=== PATIENT | female | born 1980 | race African-American/Black ===

== ENCOUNTER 2017-10-10 12:01 | Emergency (ER) | payer BC, OTHER ==
[2017-10-10] MEDS ORDERED: DIPHENHYDRAMINE HCL 50 MG CAPSULE PO ONE (13:12)
[2017-10-10] MEDS ORDERED: PROMETHAZINE HCL 25 MG TABLET PO ONE (13:12)
--- NOTE | 2017-10-10 13:12 | ER Document Report ---
ED General - General Chief Complaint: Headache Stated Complaint: HEADACHE Time Seen by Provider: 10/10/17 12:55 Mode of Arrival: Ambulatory Information source: Patient Notes: 37-year-old female presents with complaints of migraine headache. Patient notes she has history of migraines denies any fevers or chills admits to nausea vomiting. Patient also notes that she was at an urgent care recently had blood work performed and stool samples for GI symptoms but that she never heard back from results TRAVEL OUTSIDE OF THE [place] IN LAST 30 DAYS: No - HPI Onset: Just prior to arrival Onset/Duration: Sudden Quality of pain: Achy Severity: Mild Pain Level: 1 Associated symptoms: Headache, Nausea, Vomiting Exacerbated by: Denies Relieved by: Denies Similar symptoms previously: Yes Recently seen / treated by doctor: Yes - Related Data Allergies/Adverse Reactions: No Known Allergies Allergy (Verified 10/10/17 12:08) Past Medical History - Social History Smoking Status: Never Smoker Cigarette use (# per day): No Chew tobacco use (# tins/day): No Smoking Education Provided: No Frequency of alcohol use: Occasional Drug Abuse: None Family History: Arthritis, Hypertension, Malignancy - Mother Patient has suicidal ideation: No Patient has homicidal ideation: No Neurological Medical History: Reports: Hx Migraine Renal/ Medical History: Denies: Hx Peritoneal Dialysis - Immunizations Immunizations up to date: Yes Hx Diphtheria, Pertussis, Tetanus Vaccination: Yes - given in the ER today Review of Systems - Review of Systems Notes: REVIEW OF SYSTEMS: CONSTITUTIONAL : Denies fever, chills, or sweats. Denies recent illness. EENT: Denies eye, ear, throat, or mouth pain or symptoms. Denies nasal or sinus congestion or discharge. Denies throat, tongue, or mouth swelling or difficulty swallowing. CARDIOVASCULAR: Denies chest pain. Denies palpitations or racing or irregular heart beat. Denies ankle edema. RESPIRATORY: Denies cough, cold, or chest congestion. Denies shortness of breath, difficulty breathing, or wheezing. GASTROINTESTINAL: Denies abdominal pain or distention. Denies nausea, vomiting , or diarrhea. Denies blood in vomitus, stools, or per rectum. Denies black, tarry stools. Denies constipation. GENITOURINARY: Denies difficulty urinating, painful urination, burning, frequency, blood in urine, or discharge. FEMALE GENITOURINARY: Denies vaginal bleeding, heavy or abnormal periods, irregular periods. Denies vaginal discharge or odor. MUSCULOSKELETAL: Denies back or neck pain or stiffness. Denies joint pain or swelling. SKIN: Denies rash, lesions or sores. HEMATOLOGIC : Denies easy bruising or bleeding. LYMPHATIC: Denies swollen, enlarged glands. NEUROLOGICAL: migraine headache PSYCHIATRIC: Denies anxiety or stress. Denies depression, suicidal ideation, or homicidal ideation. ALL OTHER SYSTEMS REVIEWED AND NEGATIVE. PHYSICAL EXAMINATION: GENERAL: Well-appearing, well-nourished and in no acute distress. HEAD: Atraumatic, normocephalic. EYES: Pupils equal round and reactive to light, extraocular movements intact, conjunctiva are normal. ENT: Nares patent, oropharynx clear without exudates. Moist mucous membranes. NECK: Normal range of motion, supple without lymphadenopathy LUNGS: Breath sounds clear to auscultation bilaterally and equal. No wheezes rales or rhonchi. HEART: Regular rate and rhythm without murmurs ABDOMEN: Soft, nontender, nondistended abdomen. No guarding, no rebound. No masses appreciated. Female : deferred Musculoskeletal: Normal range of motion, no pitting or edema. No cyanosis. NEUROLOGICAL: Cranial nerves grossly intact. Normal speech, normal gait. Normal sensory, motor exams PSYCH: Normal mood, normal affect. SKIN: Warm, Dry, normal turgor, no rashes or lesions noted. Dictation was performed using [email or web address] voice recognition software Physical Exam - Vital signs Vitals: Temp Pulse Resp BP Pulse Ox 98.4 F 80 18 112/81 97 10/10/17 12:09 10/10/17 12:09 10/10/17 12:09 10/10/17 12:09 10/10/17 12:09 Course - Re-evaluation Re-evalutation: 10/10/17 15:43 Patient's evaluation is most consistent with chronic migraine headache, her symptoms noted no neurological deficits, I do not believe imaging is appropriate at this time as there is no acute or sudden onset of this migraine is is pink constant for the past week. Patient was given Benadryl and Phenergan notes symptoms have improved significantly, I did discuss with her the findings of her lab work from her urgent care and have contact them multiple times but they have not contacted me back. I requested that she follow -up with [facility] for further evaluation and care After performing a Medical Screening Examination, I estimate there is LOW risk for ACUTE GLAUCOMA, TEMPORAL ARTERITIS, MENINGITIS, INCRANIAL HEMORRHAGE, or ISCHEMIC STROKE thus I consider the discharge disposition reasonable. I have reevaluated this patient multiple times and no significant life threatening changes are noted. The patient and I have discussed the diagnosis and risks, and we agree with discharging home with close follow-up with the understanding that symptoms and presentations can change. We also discussed returning to the Emergency Department immediately if new or worsening symptoms occur. We have discussed the symptoms which are most concerning (e.g., changing or worsening symptoms, new numbness or weakness, vomiting, fever) that necessitate immediate return. - Vital Signs Vital signs: Temp Pulse Resp BP Pulse Ox 98.4 F 80 18 112/81 97 10/10/17 12:09 10/10/17 12:09 10/10/17 12:09 10/10/17 12:10/10/17 12:09 Discharge - Discharge Clinical Impression: Migraine headache Qualifiers: Migraine type: unspecified Status migrainosus presence: without status migrainosus Intractability: not intractable Qualified Code(s): G43.909 - Migraine, unspecified, not intractable, without status migrainosus Condition: Stable Disposition: HOME, SELF-CARE Instructions: Headache ([facility]) Prescriptions: Promethazine HCl [Phenergan 25 mg Tablet] 1 - 2 tab PO Q6H PRN #15 tablet PRN Reason: Referrals: AIDA ELISE MD [Primary Care Provider] - Follow up tomorrow
[2017-10-10 15:48] VITALS: BP 110/74
== END 2017-10-10 15:48 | disposition home or self-care (01) ==
LOC: ER 12:01
DX: G43.909 Migraine, unspecified, not intractable, without status migrainosus (principal); R11.2 Nausea with vomiting, unspecified
CPT/HCPCS: 99283

== ENCOUNTER → 2017-10-24 | Outpatient (CLI) | payer BC ==
--- NOTE | 2017-10-24 15:49 | RADIOLOGY REPORT (SQ) ---
EXAM DESCRIPTION: BARIUM SWALLOW ESOPHAGUS COMPLETED DATE/TIME: 10/24/2017 9:18 am REASON FOR STUDY: GERD (K21.9) K21.9 GASTRO-ESOPHAGEAL REFLUX DISEASE WITHOUT ESOPHAGITIS COMPARISON: None. TECHNIQUE: Under fluoroscopic guidance, patient ingested effervescent granules followed by thick and thin barium. Fluoroscopic spot images and routine radiographic images acquired and stored on PACS. 12 MM BARIUM TABLET GIVEN: Yes. No significant delay in passage. LIMITATIONS: None. FLUOROSCOPY TIME: FLUORO TIME: 1 minutes 34 seconds 7 series of digital images saved to PACS. FINDINGS: NEUROMUSCULAR COORDINATION OF SWALLOW: Normal. No aspiration. ESOPHAGEAL MOTILITY: Normal peristalsis. No esophageal spasm. ESOPHAGEAL MUCOSA: Normal mucosa without masses or ulceration. GASTRO-ESOPHAGEAL JUNCTION: No hiatal hernia. Trace gastroesophageal reflux. Limited imaging over the stomach demonstrates very limited gastric peristalsis. There is also paucit y of folds in the body and antrum of the stomach worrisome for atrophic gastritis. IMPRESSION: Minimal gastroesophageal reflux Limited view of the stomach demonstrates decreased overall gastric peristalsis and markedly diminishe d folds over the antrum and body worrisome for atrophic gastritis COMMENT: Quality ID [id number]: Final reports for procedures using fluoroscopy that document radiation exp osure indices, or exposure time and number of fluorographic images (if radiation exposure indices are not available) TECHNICAL DOCUMENTATION: JOB ID: [id number] [employer]- All Rights Reserved Reading location - IP/workstation name: [email or web address]
== END ==
LOC: RAD 08:37
PROVIDERS: ATTEND Family Medicine
DX: K21.9 Gastro-esophageal reflux disease without esophagitis (principal)
CPT/HCPCS: 74220

== ENCOUNTER 2018-06-27 21:46 | Emergency (ER) | payer SELFPAY ==
[2018-06-27 21:57] VITALS: BP 118/78
[2018-06-27 22:41] LABS: ABSOLUTE EOSINOPHILS # (AUTO) 0.2 10^3/uL (0.0-0.6); ABSOLUTE LYMPHOCYTES (AUTO) 2.6 10^3/uL (0.5-4.7); ABSOLUTE MONOCYTES (AUTO) 0.4 10^3/uL (0.1-1.4); ABSOLUTE NEUT (AUTO) 2.2 10^3/uL (1.7-8.2); BASOPHILS % (AUTO) 0.6 % (0-2); EOSINOPHILS % (AUTO) 3.2 % (0-6); HEMOGLOBIN 12.4 g/dL (12.0-15.5); LYMPHOCYTES % (AUTO) 48.1 % (13-45); MEAN CORPUSCULAR HEMOGLOBIN 28.9 pg (27.0-33.4); MEAN CORPUSCULAR HGB CONC 33.6 g/dL (32.0-36.0); MEAN CORPUSCULAR VOLUME 86 fl (80-97); MONOCYTES % (AUTO) 7.1 % (3-13); PLATELET COUNT 183 10^3/uL (150-450); RED BLOOD COUNT 4.31 10^6/uL (3.72-5.28); RED CELL DISTRIBUTION WIDTH 12.3 % (11.5-14.0); TOTAL CELLS COUNTED % (AUTO) 100 %; WHITE BLOOD COUNT 5.5 10^3/uL (4.0-10.5)
--- NOTE | 2018-06-27 22:55 | ER Document Report ---
ED General - General Chief Complaint: Abdominal Pain Stated Complaint: STOMACH PAIN,BLOOD IN STOOL Time Seen by Provider: 06/27/18 22:03 Notes: Patient is a 38-year-old female without chronic medical problems who presents with multiple complaints. The patient's primary reason for the visit to the emergency department tonight per her report is that she had some bloody stool today that occurred after she has strained to have a bowel movement. The patient does go on to list multiple additional concerns including intermittent chest discomfort, abdominal cramping, vaginal discharge, irregular periods, left leg pain, hemorrhoids, and intermittent rectal bleeding. When asked for the precise reason that she came to the emergency from this evening she does refocus and states that it was due to having a bloody bowel movement earlier today. She states that there was a small amount of blood on the tissue when she wiped as well as mixed in with her stool. She states that she has had recurrent constipation but has not tried anything to treat the symptoms. Nothing seems to improve or worsen her symptoms. She has not seen her general physician regarding today's concerns. She does not use any form of anticoagulation. TRAVEL OUTSIDE OF THE [place] IN LAST 30 DAYS: No - Related Data Allergies/Adverse Reactions: No Known Allergies Allergy (Verified 10/10/17 12:08) Past Medical History - General Information source: Patient - Social History Smoking Status: Never Smoker Frequency of alcohol use: None Drug Abuse: None Lives with: Family Family History: Arthritis, Hypertension, Malignancy - Mother Patient has suicidal ideation: No Patient has homicidal ideation: No Neurological Medical History: Reports: Hx Migraine Renal/ Medical History: Denies: Hx Peritoneal Dialysis - Immunizations Immunizations up to date: Yes Hx Diphtheria, Pertussis, Tetanus Vaccination: Yes - given in the ER today Review of Systems - Review of Systems Notes: Constitutional: Negative for fever. HENT: Negative for sore throat. Eyes: Negative for visual changes. Cardiovascular: Negative for chest pain. Respiratory: Negative for shortness of breath. Gastrointestinal: Negative for abdominal pain, positive for bloody stools Genitourinary: Negative for dysuria. Musculoskeletal: Negative for back pain. Skin: Negative for rash. Neurological: Negative for headaches, weakness or numbness. 10 point ROS negative except as marked above and in HPI. Physical Exam - Vital signs Vitals: Temp Pulse Resp BP Pulse Ox 98.5 F 79 15 118/78 98 12/15/18 21:54 06/27/18 21:54 06/27/18 21:54 06/27/18 21:54 06/27/18 21:54 Interpretation: Normal Notes: PHYSICAL EXAMINATION: GENERAL: Well-appearing, well-nourished and in no acute distress. HEAD: Atraumatic, normocephalic. EYES: Pupils equal round and reactive to light, extraocular movements intact, sclera anicteric, conjunctiva are normal. ENT: nares patent, oropharynx clear without exudates. Moist mucous membranes. NECK: Normal range of motion, supple without lymphadenopathy LUNGS: Breath sounds clear to auscultation bilaterally and equal. No wheezes rales or rhonchi. HEART: Regular rate and rhythm without murmurs ABDOMEN: Soft, nontender, normoactive bowel sounds. No guarding, no rebound. No masses appreciated. Rectal: No gross blood or masses EXTREMITIES: Normal range of motion, no pitting or edema. No cyanosis. NEUROLOGICAL: No focal neurological deficits. Moves all extremities spontaneously and on command. PSYCH: Normal mood, normal affect. SKIN: Warm, Dry, normal turgor, no rashes or lesions noted. Course - Re-evaluation Re-evalutation: 06/27/18 22:52 Patient presents with complaints of intermittent abdominal cramping, constipation and some light rectal bleeding that occurred tonight after straining for a bowel movement. Her rectal examination was without any bleeding , stool occult negative. Abdominal exam is completely benign without any areas of focal tenderness. Do not suspect clinically significant upper or lower GI bleed. Suspect likely hemorrhoidal bleeding based on exam and history. The patient also complains of approximate 1 week of left leg pain over her Achilles tendon region. Suspect a ligamentous strain and have advised conservative measures at home. Based on reassuring exam, labs and vitals I do not believe that there is an indication for imaging or hospitalization. I have started the patient on MiraLAX to assist with her ongoing constipation. At this time will discharge with return precautions and follow-up recommendations. Verbal discharge instructions given a the bedside and opportunity for questions given. Medication warnings reviewed. Patient is in agreement with this plan and has verbalized understanding of return precautions and the need for primary care follow-up in the next 24-72 hours. - Vital Signs Vital signs: Temp Pulse Resp BP Pulse Ox 98.5 F 79 15 118/78 98 06/27/18 21:54 06/27/18 21:54 06/27/18 21:54 06/27/18 21:54 06/27/18 21:54 - Laboratory Result Diagrams: 06/27/18 22:30 06/27/18 22:30 Laboratory results interpreted by me: 06/27/18 06/27/18 22:30 22:30 Seg Neutrophils % 41.0 L Lymphocytes % 48.1 H Chloride 108 H Discharge - Discharge Clinical Impression: Abdominal cramping, Rectal bleeding, Left leg pain Condition: Good Disposition: HOME, SELF-CARE Additional Instructions: You were seen today for light rectal bleeding. Your blood count is normal in your stool does not contain any blood at this time. Begin taking 1 capful of MiraLAX daily as well as supporting fiber into your diet approximately 5-10 g additional daily. For the area on her left leg that is tender I would advise ibuprofen 600 mg every 6 hours as needed for discomfort as well as icing the area and continue to stretch the area regularly. Please follow-up with your primary doctor. Return if you begin to have persistent bleeding, worsening pain , abdominal pain, fever >101, or any other symptoms that are concerning to you. Referrals: AIDA ELISE MD [Primary Care Provider] - Follow up in 3-5 days
[2018-06-27 22:59] LABS: ALANINE AMINOTRANSFERASE 17 U/L (9-52); ALKALINE PHOSPHATASE 61 U/L (38-126); ANION GAP 7 (5-19); ASPARTATE AMINO TRANSFERASE 27 U/L (14-36); BILIRUBIN,DIRECT 0.1 mg/dL (0.0-0.4); BILIRUBIN,TOTAL 0.4 mg/dL (0.2-1.3); BLOOD UREA NITROGEN 15 mg/dL (7-20); CALCIUM 9.1 mg/dL (8.4-10.2); CARBON DIOXIDE 23 mmol/L (22-30); CHLORIDE 108 mmol/L (98-107); GLUCOSE 95 mg/dL (75-110); POTASSIUM 4.4 mmol/L (3.6-5.0); SODIUM 138.1 mmol/L (137-145); TOTAL PROTEIN 6.8 g/dL (6.3-8.2)
== END 2018-06-27 23:29 | disposition home or self-care (01) ==
LOC: ER 21:46
DX: R10.9 Unspecified abdominal pain (principal); M79.605 Pain in left leg; K62.5 Hemorrhage of anus and rectum
CPT/HCPCS: 36415; 80053; 82272; 84703; 85025; 99284